=== PATIENT | female | born 1950 | race African-American/Black ===

== ENCOUNTER 2016-07-29 12:22 | Outpatient (CLI) | payer MEDICARE ==
[2016-07-29 13:05] LABS: #Basophils 0.1 thou/uL (0.0-0.2); #Eosinphils 0.1 thou/uL (0.0-0.7); #Lymphocytes 1.4 thou/uL (1.20-3.40); #Monocytes 0.4 thou/uL (0.11-0.59); #Neutrophils 4.5 thou/uL (1.40-6.50); %Basophils 1.4 % (0.0-1.0); %Lymphocytes 21.2 % (21.0-51.0); %Monocytes 5.8 % (0.0-10.0); %Neutrophils 70.6 % (42.0-75.0); Hemoglobin 14.4 g/dL (12.0-16.0); Mean Corpuscular HGB CONC 32.7 g/dL (32.0-36.0); Mean Corpuscular Hemoglobin 29.6 pg (27.0-31.0); Mean Corpuscular Volume 90.4 fl (81.0-99.0); Mean Platelet Volume 7.9 fL (7.4-10.4); Platelet Count 304 thou/uL (130-400); RBC Distribution Width 14.1 % (11.5-14.5); Red Blood Cell (RBC) Count 4.85 mill/uL (4.20-5.40); White Blood Cell (WBC) Count 6.4 thou/uL (4.8-10.8)
[2016-07-29 13:14] LABS: ALT (SGPT) 9 U/L (0-55); AST (SGOT) 14 U/L (5-34); Albumin 4.2 g/dL (3.4-4.8); Alkaline Phosphatase 84 U/L (40-150); Anion Gap 11 mmol/L (10-20); BUN (Urea Nitrogen) 14 mg/dL (9.8-20.1); Bilirubin, Total 0.3 mg/dL (0.2-1.2); CRP (Inflammatory) Less than 0.50 mg/dL (= or < 0.5); Calc. Creatinine Clearance 0 mL/min (70-130); Calcium 10.1 mg/dL (7.8-10.44); Carbon Dioxide 30 mmol/L (23-31); Cardiac Risk 2.9 (Less than 4.5); Chloride 103 mmol/L (98-107); Cholesterol 222 mg/dL (< 200 Desired); Estimated GFR-MDRD 90; Globulin 3.1 g/dL (2.4-3.5); Glucose 91 mg/dL (80-115); HDL Cholesterol 77 mg/dL (>60 Neg Risk); LDL Cholesterol, Calculated 129 mg/dL; Potassium 4.4 mmol/L (3.5-5.1); Protein, Total 7.3 g/dL (5.8-8.1); Sodium 140 mmol/L (136-145); Triglycerides 78 mg/dL (Less than 150)
[2016-07-29 13:17] LABS: Hemoglobin A1c 5.2 % (4.0-6.0)
[2016-07-29 13:41] LABS: Thyroid Stimulating Hormone 0.9995 uIU/mL (0.35-4.94); Vitamin D, 25 Hydroxy 32.1 ng/mL (> 30.0)
== END 2016-07-29 12:23 | disposition home or self-care (01) ==
LOC: MADLABBHPM 12:22
PROVIDERS: ATTEND Family Medicine
DX: I10 Essential (primary) hypertension (principal)
CPT/HCPCS: 36415; 80053; 80061; 82306; 83036; 84443; 85025; 85652; 86140; 86200; 86430